=== PATIENT | female | born 1950 | race African-American/Black ===

== ENCOUNTER 2016-06-28 06:48 | Emergency (ER) | payer OTHER ==
[~2016-06-28] VITALS: Ht 172.7 cm; Wt 68.0 kg
[2016-06-28] MEDS ORDERED: DEXT 5% WATER 500 ML IV ONE (10:15)
[2016-06-28 11:15] VITALS: BP 145/80
== END 2016-06-28 13:23 | disposition home or self-care (01) ==
LOC: ER 06:55
DX: E11.649 Type 2 diabetes mellitus with hypoglycemia without coma (principal); I10 Essential (primary) hypertension; Z95.1 Presence of aortocoronary bypass graft; Z87.891 Personal history of nicotine dependence
CPT/HCPCS: 82962; 96365; 96366; 99285; J7060